=== PATIENT | female | born 1975 | race American Indian/Alaskan Native ===

== ENCOUNTER 2016-08-04 17:15 | Emergency (ER) | payer SELFPAY ==
[2016-08-04] MEDS ORDERED: TORADOL IM ONE (21:14)
--- NOTE | 2016-08-04 21:26 | Emergency Department Report ---
HPI - General Chief Complaint: Skin Rash Time Seen by Provider: 08/04/16 21:12 - HPI HPI: This is a 40-year-old -[place] female who presents to the emergency department with complaint of a 2 day history of some painful and itchy lesions to the left arm, left side of the neck, left ankle and to the left wrist that she says are spider bites. She says that she witnessed 8 small spiders come out and bite her while she has been staying [facility]. They are small, red, circular, raised. There is been no bleeding, weeping or drainage. She has not taken anything for symptoms prior to presentation. She has a history of bipolar disorder. She denies any suicidal homicidal ideations or any auditory hallucinations. Patient is not allowed to have any narcotics per the [facility]. Patient says that the spiders were black and muhammad, small and that she found a large spider web in the room as well. ED Past Medical Hx - Past Medical History Previous Medical History?: Yes Hx Psychiatric Treatment: Yes (BiPolar,) - Surgical History Past Surgical History?: No - Social History Smoking Status: Light Tobacco Smoker Substance Use Type: Alcohol - Medications Home Medications: Home Medications Medication Instructions Recorded Confirmed Last Taken Type Ibuprofen [Motrin] 600 mg PO Q8H PRN #20 tablet 08/04/16 Unknown Rx ED Review of Systems ROS: Stated complaint: SPIDER BITE/NUMBNESS R ARM Other details as noted in HPI Comment: All other systems reviewed and negative Constitutional: denies: chills, fever Eyes: denies: eye pain, eye discharge, vision change ENT: denies: ear pain, throat pain Respiratory: denies: cough, shortness of breath, wheezing Cardiovascular: denies: chest pain, palpitations Gastrointestinal: denies: abdominal pain, nausea, diarrhea Genitourinary: denies: urgency, dysuria, discharge Musculoskeletal: denies: back pain, joint swelling, arthralgia Skin: rash, lesions Neurological: denies: headache, weakness, paresthesias Physical Exam - Physical Exam Vital Signs: Vital Signs 08/04/16 18:13 Temperature 98.5 F Pulse Rate 105 H Respiratory 16 Rate Blood Pressure 116/77 O2 Sat by Pulse 98 Oximetry Physical Exam: GENERAL: The patient is well-developed well-nourished. HEENT: Normocephalic. Atraumatic. Extraocular motions are intact. Patient has moist mucous membranes. NECK: Supple. Trachea is midline. CHEST/LUNGS: Clear to auscultation. There is no respiratory distress noted. HEART/CARDIOVASCULAR: Regular. There is no tachycardia. There is no gallop rub or murmur. ABDOMEN: Abdomen is soft, nontender. Patient has normal bowel sounds. SKIN: The patient has a few individual papules seen to the left side of the neck and/or superior shoulder, left wrist at the thenar eminence and the left lateral malleolus. These papules are circular, about 1 cm in diameter, raised but there is no erythema. There is no warmth or fluctuance and they're slightly indurated. None of them appear to be in any flexor surfaces. NEURO: The patient is awake, alert, and oriented. The patient is cooperative. The patient has no focal neurologic deficits. The patient has normal speech. MUSCULOSKELETAL: There is no tenderness or deformity. There is no limitation range of motion. There is no evidence of acute injury. ED Course Vital Signs 08/04/16 18:13 Temperature 98.5 F Pulse Rate 105 H Respiratory 16 Rate Blood Pressure 116/77 O2 Sat by Pulse 98 Oximetry ED Medical Decision Making - Medical Decision Making 40-year-old female presents to the emergency department with a 2 day history of spider bites that of caused a few localized papules. This rash does not appear to be anything that appears to be dangerous. Negative Mikulski sign. There is no current bleeding, weeping or drainage. None of them are abscesses that require any incision and drainage. Patient was given a dose of Decadron here and a shot of Toradol for discomfort. None of the lesions are in the flexor surfaces, including none in the webbing of the fingers or waistband and does not appear to be consistent with scabies. Patient was given the steroids for inflammation and itching. She'll be discharged with some anti-inflammatory is. She has a primary care doctor and Dr. Stroud will need to follow-up in the next few days and maybe be referred to a slide fastener chain assembler if not improving. She has been encouraged to return to the ER with any worsening or symptoms or any acute distress especially if she develops more lesions in the become more generalized. - Differential Diagnosis insect bite, bedbugs, scabies Critical Care Time: No Critical care attestation.: If time is entered above; I have spent that time in minutes in the direct care of this critically ill patient, excluding procedure time. ED Disposition Clinical Impression: Papular rash Disposition: DISCHARGED TO HOME OR SELFCARE Is pt being admited?: No Does the pt Need Aspirin: No Condition: Good Instructions: Acute Rash (ED) Additional Instructions: Please follow-up with your primary care doctor in the next few days. You may need the slide fastener chain assembler if this does not improve. You were given some steroids in the emergency department that should help with inflammation and itching. I also prescribed used some anti-inflammatory's. Return to the emergency department with any worsening of her symptoms, generalization of the rash, development of a fever, or any acute distress. Prescriptions: Ibuprofen [Motrin] 600 mg PO Q8H PRN #20 tablet PRN Reason: Pain Referrals: PRIMARY CARE, [Primary Care Provider] - 3-5 Days Time of Disposition: 21:28
[2016-08-04] MEDS ORDERED: DECADRON PO ONE (22:00)
[2016-08-04 22:16] VITALS: BP 114/74
== END 2016-08-04 21:28 | disposition home or self-care (01) ==
LOC: ED 17:15
DX: R21 Rash and other nonspecific skin eruption (principal); F31.9 Bipolar disorder, unspecified; F17.200 Nicotine dependence, unspecified, uncomplicated
CPT/HCPCS: 96372; 99282; J1885; J8540

== ENCOUNTER 2017-04-29 08:43 | Emergency (ER) | payer MEDICARE ==
[2017-04-29 09:38] LABS: Basophils % (Auto) 0.6 % (0.0-1.8); Eosinophils % (Auto) 0.2 % (0.0-4.3); Mean Corpuscular HGB Conc 33 % (30-34); Mean Corpuscular Hemoglobin 28 pg (28-32); Mean Corpuscular Volume 86 fl (79-97); Platelet Count 207 K/mm3 (140-440); Red Blood Count 5.72 M/mm3 (3.65-5.03); Red Cell Distribution Width 15.4 % (13.2-15.2); White Blood Count 6.4 K/mm3 (4.5-11.0)
[2017-04-29 09:51] LABS: Anion Gap 20 mmol/L; BUN/Creatinine Ratio 10; Blood Urea Nitrogen 8 mg/dL (7-17); Calcium 9.5 mg/dL (8.4-10.2); Carbon Dioxide 21 mmol/L (22-30); Glucose 79 mg/dL (65-100); Potassium 3.6 mmol/L (3.6-5.0); Sodium 141 mmol/L (137-145)
--- NOTE | 2017-04-29 13:49 | Emergency Department Report ---
ED Psych HPI - General Chief Complaint: Psych Stated Complaint: SUICIDAL Time Seen by Provider: 04/29/17 13:48 Source: patient Mode of arrival: Ambulatory Limitations: No Limitations - History of Present Illness Initial Comments: This is a 41-year-old female, the patient is previously unknown to me. She reports a past medical history of psychiatric disease, presents to the ER complaining of suicidality, depression. Her symptoms are constant. She wants to cut herself. She endorses hallucinations, as she denies intentional overdose , and she denies access to guns and firearms. MD Complaint: suicidal ideation, feels depressed -: Gradual Associated Psychiatric Symptoms: suicidal ideation, auditory hallucinations, visual hallucinations History of same: Yes Quality: constant Improves With: none Worsens With: none Context: significant life stressor Associated Symptoms: denies other symptoms Treatments Prior to Arrival: none If Self Harm: admits thoughts of, has plan - Related Data Previous Rx's Medication Instructions Recorded Last Taken Type Ibuprofen [Motrin] 600 mg PO Q8H PRN #20 tablet 08/04/16 Unknown Rx Allergies Allergy/AdvReac Type Severity Reaction Status Date / Time No Known Allergies Allergy Unverified 04/29/17 08:52 ED Review of Systems ROS: Stated complaint: SUICIDAL Other details as noted in HPI Constitutional: denies: fever Eyes: denies: eye discharge ENT: denies: epistaxis Respiratory: denies: cough Cardiovascular: denies: chest pain Gastrointestinal: denies: abdominal pain Genitourinary: denies: dysuria Musculoskeletal: denies: back pain Neurological: weakness Psychiatric: anxiety, depression, auditory hallucinations, visual hallucinations , suicidal thoughts ED Past Medical Hx - Past Medical History Previous Medical History?: Yes Hx Psychiatric Treatment: Yes (BiPolar, schizophrenia, depression) - Surgical History Past Surgical History?: No - Social History Smoking Status: Current Every Day Smoker Substance Use Type: Alcohol - Medications Home Medications: Home Medications Medication Instructions Recorded Confirmed Last Taken Type Ibuprofen [Motrin] 600 mg PO Q8H PRN #20 tablet 08/04/16 Unknown Rx ED Physical Exam - General Limitations: No Limitations General appearance: alert, in no apparent distress - Head Head exam: Present: atraumatic, normocephalic - Eye Eye exam: Present: normal appearance, PERRL, EOMI. Absent: nystagmus - ENT ENT exam: Present: normal exam, normal orophraynx, mucous membranes moist, normal external ear exam - Neck Neck exam: Present: normal inspection, full ROM. Absent: tenderness, meningismus - Respiratory Respiratory exam: Present: normal lung sounds bilaterally. Absent: respiratory distress, wheezes, rales, rhonchi, stridor, chest wall tenderness, accessory muscle use, decreased breath sounds, prolonged expiratory - Cardiovascular Cardiovascular Exam: Present: regular rate, normal rhythm, normal heart sounds. Absent: bradycardia, tachycardia, irregular rhythm, systolic murmur, diastolic murmur, rubs, gallop - GI/Abdominal GI/Abdominal exam: Present: soft, normal bowel sounds. Absent: distended, tenderness, guarding, rebound, rigid, pulsatile mass - Extremities Exam Extremities exam: Present: normal inspection, full ROM, normal capillary refill. Absent: pedal edema, joint swelling, calf tenderness - Back Exam Back exam: Present: normal inspection, full ROM. Absent: tenderness, CVA tenderness (R), paraspinal tenderness, vertebral tenderness - Neurological Exam Neurological exam: Present: alert, oriented X3, normal gait, other (Extraocular movements intact. Tongue midline. No facial droop. Facial sensation intact to light touch in the V1, V2, V3 distribution bilaterally. 5 and 5 strength in 4 extremities.. Sensation is intact to light touch in 4 extremities.). Absent : motor sensory deficit - Psychiatric Psychiatric exam: Present: depressed, anxious. Absent: homicidal ideation, suicidal ideation - Skin Skin exam: Present: warm, dry, intact, normal color. Absent: rash ED Course Vital Signs 04/29/17 08:46 Temperature 97.6 F Pulse Rate 78 Respiratory 16 Rate Blood Pressure 134/83 O2 Sat by Pulse 98 Oximetry ED Medical Decision Making - Lab Data Result diagrams: 04/29/17 08:58 04/29/17 08:58 Vital Signs 04/29/17 08:46 Temperature 97.6 F Pulse Rate 78 Respiratory 16 Rate Blood Pressure 134/83 O2 Sat by Pulse 98 Oximetry Lab Results 04/29/17 04/29/17 04/29/17 Range/Units 08:58 08:58 08:58 WBC 6.4 (4.5-11.0) K/mm3 RBC 5.72 H (3.65-5.03) M/mm3 Hgb 16.0 H (10.1-14.3) gm/dl Hct 49.0 H (30.3-42.9) % MCV 86 (79-97) fl MCH 28 (28-32) pg MCHC 33 (30-34) % RDW 15.4 H (13.2-15.2) % Plt Count 207 (140-440) K/mm3 Lymph % (Auto) 29.7 (13.4-35.0) % Tillman % (Auto) 12.4 H (0.0-7.3) % Eos % (Auto) 0.2 (0.0-4.3) % Baso % (Auto) 0.6 (0.0-1.8) % Lymph # 1.9 (1.2-5.4) K/mm3 Tillman # 0.8 (0.0-0.8) K/mm3 Eos # 0.0 (0.0-0.4) K/mm3 Baso # 0.0 (0.0-0.1) K/mm3 Seg Neutrophils % 57.1 (40.0-70.0) % Seg Neutrophils # 3.6 (1.8-7.7) K/mm3 Sodium 141 (137-145) mmol/L Potassium 3.6 (3.6-5.0) mmol/L Chloride 104.0 (98-107) mmol/L Carbon Dioxide 21 L (22-30) mmol/L Anion Gap 20 mmol/L BUN 8 (7-17) mg/dL Creatinine 0.8 (0.7-1.2) mg/dL Estimated GFR > 60 ml/min BUN/Creatinine Ratio 10 % Glucose 79 (65-100) mg/dL Calcium 9.5 (8.4-10.2) mg/dL Total Creatine Kinase (30-135) units/L HCG, Quant (0-4) mIU/mL Urine Color (Yellow) Urine Turbidity (Clear) Urine pH (5.0-7.0) Ur Specific [place] (1.003-1.030) Urine Protein (Negative) mg/dL Urine Glucose (UA) (Negative) mg/dL Urine Ketones (Negative) mg/dL Urine Blood (Negative) Urine Nitrite (Negative) Urine Bilirubin (Negative) Urine Urobilinogen (<2.0) mg/dL Ur Leukocyte Esterase (Negative) Urine WBC (Auto) (0.0-6.0) /HPF Urine RBC (Auto) (0.0-6.0) /HPF U Epithel Cells (Auto) (0-13.0) /HPF Urine Bacteria (Auto) (Negative) /HPF Urine Mucus /HPF Salicylates (2.8-20.0) mg/dL Urine Opiates Screen Urine Methadone Screen Acetaminophen (10.0-30.0) ug/mL Ur Barbiturates Screen Valproic Acid (50-100) ug/mL Ur Phencyclidine Scrn Ur Amphetamines Screen U Benzodiazepines Scrn [place] (0.0-1.2) mmol/L Urine Cocaine Screen U Marijuana (THC) Screen Drugs of Abuse Note Plasma/Serum Alcohol < 0.01 (0-0.07) gm% 04/29/17 04/29/17 04/29/17 Range/Units 13:50 13:50 14:00 WBC (4.5-11.0) K/mm3 RBC (3.65-5.03) M/mm3 Hgb (10.1-14.3) gm/dl Hct (30.3-42.9) % MCV (79-97) fl MCH (28-32) pg MCHC (30-34) % RDW (13.2-15.2) % Plt Count (140-440) K/mm3 Lymph % (Auto) (13.4-35.0) % Tillman % (Auto) (0.0-7.3) % Eos % (Auto) (0.0-4.3) % Baso % (Auto) (0.0-1.8) % Lymph # (1.2-5.4) K/mm3 Tillman # (0.0-0.8) K/mm3 Eos # (0.0-0.4) K/mm3 Baso # (0.0-0.1) K/mm3 Seg Neutrophils % (40.0-70.0) % Seg Neutrophils # (1.8-7.7) K/mm3 Sodium (137-145) mmol/L Potassium (3.6-5.0) mmol/L Chloride (98-107) mmol/L Carbon Dioxide (22-30) mmol/L Anion Gap mmol/L BUN (7-17) mg/dL Creatinine (0.7-1.2) mg/dL Estimated GFR ml/min BUN/Creatinine Ratio % Glucose (65-100) mg/dL Calcium (8.4-10.2) mg/dL Total Creatine Kinase 317 H (30-135) units/L HCG, Quant (0-4) mIU/mL Urine Color Sonia (Yellow) Urine Turbidity Clear (Clear) Urine pH 5.0 (5.0-7.0) Ur Specific [place] 1.023 (1.003-1.030) Urine Protein 30 mg/dl (Negative) mg/dL Urine Glucose (UA) Neg (Negative) mg/dL Urine Ketones 20 (Negative) mg/dL Urine Blood Sm (Negative) Urine Nitrite Neg (Negative) Urine Bilirubin Neg (Negative) Urine Urobilinogen 4.0 (<2.0) mg/dL Ur Leukocyte Esterase Neg (Negative) Urine WBC (Auto) 2.0 (0.0-6.0) /HPF Urine RBC (Auto) 6.0 (0.0-6.0) /HPF U Epithel Cells (Auto) 2.0 (0-13.0) /HPF Urine Bacteria (Auto) 1+ (Negative) /HPF Urine Mucus 3+ /HPF Salicylates (2.8-20.0) mg/dL Urine Opiates Screen Presumptive negative Urine Methadone Screen Presumptive negative Acetaminophen (10.0-30.0) ug/mL Ur Barbiturates Screen Presumptive negative Valproic Acid (50-100) ug/mL Ur Phencyclidine Scrn Presumptive negative Ur Amphetamines Screen Presumptive negative U Benzodiazepines Scrn Presumptive negative [place] (0.0-1.2) mmol/L Urine Cocaine Screen Presumptive positive U Marijuana (THC) Screen Presumptive negative Drugs of Abuse Note Disclamer Plasma/Serum Alcohol (0-0.07) gm% 04/29/17 04/29/17 04/29/17 Range/Units 14:00 14:00 14:00 WBC (4.5-11.0) K/mm3 RBC (3.65-5.03) M/mm3 Hgb (10.1-14.3) gm/dl Hct (30.3-42.9) % MCV (79-97) fl MCH (28-32) pg MCHC (30-34) % RDW (13.2-15.2) % Plt Count (140-440) K/mm3 Lymph % (Auto) (13.4-35.0) % Tillman % (Auto) (0.0-7.3) % Eos % (Auto) (0.0-4.3) % Baso % (Auto) (0.0-1.8) % Lymph # (1.2-5.4) K/mm3 Tillman # (0.0-0.8) K/mm3 Eos # (0.0-0.4) K/mm3 Baso # (0.0-0.1) K/mm3 Seg Neutrophils % (40.0-70.0) % Seg Neutrophils # (1.8-7.7) K/mm3 Sodium (137-145) mmol/L Potassium (3.6-5.0) mmol/L Chloride (98-107) mmol/L Carbon Dioxide (22-30) mmol/L Anion Gap mmol/L BUN (7-17) mg/dL Creatinine (0.7-1.2) mg/dL Estimated GFR ml/min BUN/Creatinine Ratio % Glucose (65-100) mg/dL Calcium (8.4-10.2) mg/dL Total Creatine Kinase (30-135) units/L HCG, Quant < 2 (0-4) mIU/mL Urine Color (Yellow) Urine Turbidity (Clear) Urine pH (5.0-7.0) Ur Specific [place] (1.003-1.030) Urine Protein (Negative) mg/dL Urine Glucose (UA) (Negative) mg/dL Urine Ketones (Negative) mg/dL Urine Blood (Negative) Urine Nitrite (Negative) Urine Bilirubin (Negative) Urine Urobilinogen (<2.0) mg/dL Ur Leukocyte Esterase (Negative) Urine WBC (Auto) (0.0-6.0) /HPF Urine RBC (Auto) (0.0-6.0) /HPF U Epithel Cells (Auto) (0-13.0) /HPF Urine Bacteria (Auto) (Negative) /HPF Urine Mucus /HPF Salicylates < 0.3 L (2.8-20.0) mg/dL Urine Opiates Screen Urine Methadone Screen Acetaminophen < 15.0 (10.0-30.0) ug/mL Ur Barbiturates Screen Valproic Acid < 2.8 L (50-100) ug/mL Ur Phencyclidine Scrn Ur Amphetamines Screen U Benzodiazepines Scrn [place] 0.1 (0.0-1.2) mmol/L Urine Cocaine Screen U Marijuana (THC) Screen Drugs of Abuse Note Plasma/Serum Alcohol (0-0.07) gm% - Medical Decision Making Differential diagnosis: Mood disorder, suicidality, medical clearance for psychiatric placement Assessment and plan: 41-year-old female with suicidality, alert and oriented 3 , GCS of 15, clinic is sober, NIH score of 0, unremarkable physical exam. Requires 1013. There is no immediate medical consultation indication to psychiatric commission, evaluation and consultation at this time. The crisis team has been ordered. Patient reports not being on psychiatric medications for the past 4 months, therefore we cannot perform medication reconciliation at this time. Critical care attestation.: If time is entered above; I have spent that time in minutes in the direct care of this critically ill patient, excluding procedure time. ED Disposition Clinical Impression: Mood disorder Disposition: DC/TX-65 PSY HOSP/PSY UNIT Is pt being admited?: No Does the pt Need Aspirin: No Condition: Stable Referrals: PRIMARY CARE, [Primary Care Provider] - 3-5 Days
[2017-04-29 14:23] LABS: Urine Drugs of Abuse Note Disclamer
[2017-04-29 14:56] LABS: Bacteria,Urine 1+ /HPF (Negative); Bilirubin,Urine NEG (Negative); Blood,Urine SM (Negative); Ketones,Urine 20 mg/dL (Negative); Leukocyte Esterase,Urine NEG (Negative); Mucus,Urine 3+ /HPF; Nitrite,Urine NEG (Negative)
[2017-04-29 14:59] LABS: Lithium 0.1 mmol/L (0.0-1.2)
[2017-04-29 15:09] LABS: Salicylate < 0.3 mg/dL (2.8-20.0); Valproate < 2.8 ug/mL (50-100)
[2017-04-29] MEDS ORDERED: ATIVAN IM PRN (15:14)
[2017-04-29] MEDS ORDERED: ZOFRAN ODT PO PRN (15:14)
[2017-04-29] MEDS ORDERED: HALDOL IM PRN (15:14)
[2017-04-29] MEDS ORDERED: TYLENOL PO PRN (15:14)
[2017-04-30 13:17] VITALS: BP 121/72
--- NOTE | 2017-04-30 14:18 | Consultation ---
History of Present Illness - Reason for Consult Consult date: 04/30/17 Reason for consult: Mental Health Evaluation Requesting physician: TEZ CHIN - Chief Complaint Chief complaint: "I had a moment" - History of Present Psychiatric Illness 41 y.o. AA female presenting to [facility] for SI's and AH's. Today patient is calm and cooperative during the assessment. She stated that she became "suicidal" when she was denied a 5000 loan 2 days ago. She stated that she wanted the money to buy new furniture and pay some bills. She stated that she is pending a lawsuit and wanted to borrow against her upcoming settlement. Once she find out that she was denied the loan she stated that she got "high" on cocaine and wanted to end her life. She stated that she have attempted suicide in the past ( 1996) by cutting her wrist. She stated after several attempts to calm herself down, she decided to drive to [facility] for help. She stated that she still have thoughts of suicide now without a plan. She denies HI's and AVH's. She stated that she have not taken her medications (Zyprexa and Trazodone) in 4 months. She admit to sleep disturbance, but denies a poor appetite. She stated that she use cocaine often and consume alcohol occasionally. Medications and Allergies Allergies Allergy/AdvReac Type Severity Reaction Status Date / Time No Known Allergies Allergy Unverified 04/29/17 08:52 Home Medications Medication Instructions Recorded Confirmed Last Taken Type Ibuprofen [Motrin] 600 mg PO Q8H PRN #20 tablet 08/04/16 Unknown Rx Active Meds: Active Medications Acetaminophen (Tylenol) 650 mg PO Q6HR PRN PRN Reason: Pain Haloperidol Lactate (Haldol) 5 mg IM Q6HR PRN PRN Reason: Agitation Lorazepam (Ativan) 2 mg IM Q4HR PRN PRN Reason: Agitation Ondansetron HCl (Zofran Odt) 4 mg PO Q6HR PRN PRN Reason: Nausea Past psychiatric history - Past Medical History Past Medical History: No medical history Past Surgical History: No surgical history - past Psychiatric treatment and history Psych: Bipolar psychiatric treatment history: Inpatient at [facility] in the past. Family psy hx of Bipolar DO. - Social History Social history: lives with family Mental Status Exam - Vital signs Last Vital Signs Temp 97.8 F 04/30/17 10:00 Pulse 61 04/30/17 10:00 Resp 18 04/30/17 10:00 BP 121/72 04/30/17 10:00 Pulse Ox 99 04/30/17 10:00 - Exam Narrative exam: MSE: Appearance: calm, cooperative Behavior: regular eye contact Speech: regular rate and tone Mood: "fine" Affect: labile Thought Process: circumstantial Thought Content: denies HI's and AVH's, suicidal thoughts Motor Activity: ambulatory Cognition: A/O x 3 Insight: variable Judgment: variable Results Result Diagrams: 04/29/17 08:58 04/29/17 08:58 Abnormal lab results 04/29/17 04/29/17 Range/Units 14:00 14:00 Total Creatine Kinase 317 H (30-135) units/L Salicylates < 0.3 L (2.8-20.0) mg/dL Valproic Acid < 2.8 L (50-100) ug/mL All other labs normal. Assessment and Plan Assessment and plan: Impression: Historical Dx: Bipolar/Depression. Unspecified Mood DO. Substance Use DO (cocaine). Today patient is calm and cooperative during the assessment. Patient having suicidal thoughts. DDx: MDD, Substance Induced Mood DO Recommendation/Plan: Continue 1013 with placement to [facility] today.
== END 2017-04-30 17:29 ==
LOC: ED 08:43
DX: F39 Unspecified mood [affective] disorder (principal); F17.200 Nicotine dependence, unspecified, uncomplicated
CPT/HCPCS: 36415; 80048; 80164; 80178; 80307; 81001; 82550; 84702; 85025; 99285; G0480; 80320

== ENCOUNTER 2017-06-26 11:45 | Emergency (ER) | payer MEDICARE ==
[2017-06-26 13:45] LABS: Basophils % (Auto) 0.9 % (0.0-1.8); Eosinophils % (Auto) 0.6 % (0.0-4.3); Hematocrit 41.8 % (30.3-42.9); Hemoglobin 13.6 gm/dl (10.1-14.3); Mean Corpuscular HGB Conc 32 % (30-34); Mean Corpuscular Hemoglobin 28 pg (28-32); Mean Corpuscular Volume 85 fl (79-97); Platelet Count 195 K/mm3 (140-440); Red Blood Count 4.94 M/mm3 (3.65-5.03); Red Cell Distribution Width 14.2 % (13.2-15.2); White Blood Count 8.5 K/mm3 (4.5-11.0)
[2017-06-26 14:07] LABS: Alanine Aminotransferase 16 units/L (7-56); Albumin 4.1 g/dL (3.9-5); Albumin/Globulin Ratio 1.3 %; Alkaline Phosphatase 90 units/L (35-129); Anion Gap 20 mmol/L; BUN/Creatinine Ratio 13; Blood Urea Nitrogen 10 mg/dL (7-17); Calcium 9.1 mg/dL (8.4-10.2); Carbon Dioxide 21 mmol/L (22-30); Chloride 101.9 mmol/L (98-107); Glucose 73 mg/dL (65-100); Potassium 3.7 mmol/L (3.6-5.0); Sodium 139 mmol/L (137-145); Total Protein 7.2 g/dL (6.3-8.2)
[2017-06-26] MEDS ORDERED: TYLENOL PO PRN (15:20)
[2017-06-26] MEDS ORDERED: MILK OF MAGNESIA PO PRN (15:20)
[2017-06-26] MEDS ORDERED: ALUM-MAG HYDROX-SIMETH 200-200-20MG/5ML PO PRN (15:20)
--- NOTE | 2017-06-26 15:24 | Emergency Department Report ---
HPI - General Chief Complaint: Psych Time Seen by Provider: 06/26/17 12:15 - HPI HPI: The patient is a 41-year-old female presents for evaluation of mental health. The patient reports constant and severe sadness and depression since last night , and associated with suicidal ideations. The patient reports a plan to cut her throat with a knife. The patient denies fever, headache, unexplained weight loss or weight gain, heat or cold intolerance, skin, hair, or nail changes, neuro deficits, homicidal ideations, or auditory or visual hallucinations. ED Past Medical Hx - Past Medical History Hx Psychiatric Treatment: Yes (BiPolar, schizophrenia, depression) - Social History Smoking Status: Current Every Day Smoker Substance Use Type: None, Alcohol - Medications Home Medications: Home Medications Medication Instructions Recorded Confirmed Last Taken Type Ibuprofen [Motrin] 600 mg PO Q8H PRN #20 tablet 08/04/16 Unknown Rx Cyclobenzaprine [Flexeril] 10 mg PO BID PRN #10 tablet 05/25/17 Unknown Rx Ibuprofen [Motrin 600 MG tab] 600 mg PO Q8H PRN #30 tablet 05/25/17 Unknown Rx ED Review of Systems ROS: Stated complaint: SUICIDAL Other details as noted in HPI Constitutional: denies: fever ENT: denies: throat or neck pain Respiratory: denies: cough, shortness of breath Cardiovascular: denies: chest pain Endocrine: denies unexplained weight loss or gain Gastrointestinal: denies: abdominal pain, nausea Genitourinary: denies: dysuria Musculoskeletal: denies: leg swelling Skin: denies: rash Neurological: denies: headache Hematological/Lymphatic: denies: easy bleeding or easy bruising Psych: denies sadness or hopelessness Physical Exam - Physical Exam Vital Signs: Vital Signs 06/26/17 12:02 Temperature 98.5 F Pulse Rate 81 Blood Pressure 113/76 O2 Sat by Pulse 94 Oximetry Physical Exam: General: well-nourished, well-developed, no acute distress Head: Normocephalic, atraumatic Eyes: normal sclera ENT: Mucous membranes are pink and moist Neck: trachea midline, neck supple, No neck stiffness, no cervical adenopathy Respiratory: Breath sounds equal bilaterally, no wheezing, rales, or rhonchi Cardio: S1 and S2 present, no murmurs, rubs, gallops, capillary refill is brisk Abdomen: Normoactive bowel sounds, soft abdomen, no tenderness Musc: No pitting edema Skin: No rash Neuro: no facial drooping, normal speech Psych: Flat affect, depressed mood, poor insight, positive suicidal ideation ED Course Vital Signs 06/26/17 12:02 Temperature 98.5 F Pulse Rate 81 Blood Pressure 113/76 O2 Sat by Pulse 94 Oximetry ED Medical Decision Making - Lab Data Result diagrams: 06/26/17 13:19 06/26/17 13:19 - Medical Decision Making The patient was seen and examined by myself. The patient is placed on a geographic information system analyst and continuous pulse ox. On initial evaluation, the patient was found to be in no distress. Labs are obtained. Lab results are grossly unremarkable. The patient is medically clear. Mental health is consulted. Mental health evaluates the patient and agrees that the patient is at risk of harm to self. A 1013 is completed. The patient will be admitted to a psychiatric facility once bed placement is obtained. Critical care attestation.: If time is entered above; I have spent that time in minutes in the direct care of this critically ill patient, excluding procedure time. ED Disposition Clinical Impression: Suicidal ideation Depression Qualifiers: Depression Type: major depressive disorder Major depression recurrence: single episode Active/Remission status: currently active Major depression episode severity: severe Psychotic features: without psychotic features Qualified Code(s ): F32.2 - Major depressive disorder, single episode, severe without psychotic features Disposition: DC/TX-65 PSY HOSP/PSY UNIT Is pt being admited?: No Does the pt Need Aspirin: No Condition: Serious Referrals: PRIMARY CARE [Primary Care Provider] - 3-5 Days Time of Disposition: 13:24
[2017-06-26 17:53] LABS: Urine Drugs of Abuse Note Disclamer
[2017-06-26 18:11] LABS: Bilirubin,Urine NEG (Negative); Blood,Urine SM (Negative); Ketones,Urine TR mg/dL (Negative); Leukocyte Esterase,Urine NEG (Negative); Mucus,Urine 3+ /HPF; Nitrite,Urine NEG (Negative)
--- NOTE | 2017-06-27 16:30 | Consultation ---
History of Present Illness - Reason for Consult Consult date: 06/27/17 Reason for consult: psychiatric evaluation - Chief Complaint Chief complaint: "I miss my mom and daughter; they are in heaven." - History of Present Psychiatric Illness Winnie Singh is a 41-year-old female who presented for evaluation of mental health. The patient reports constant and severe sadness and depression since last night, and associated with suicidal ideation. The patient reports a plan to cut her throat with a knife. She reports thinking about her mother and daughter who are . She said she wanted to be with them. She says her mood goes from elevated for weeks to severe depressive episodes. During the elevated moods she spends money excessively. During depressed episodes she uses cocaine if she can obtain it. She says this occurs about every 1-2 months. She drinks 2 beers daily. She is treated for schizoaffective d/o, bipolar type at the [facility]. She takes seroquel 300mg bid, zyprexa low dose, zoloft 100mg daily, vistaril 100mg hs, and trazodone 100mg hs. She was hospitalized 2 months ago at [facility]. While there the zoloft and zyprexa were discontinued and lithium was added. She says she liked the lithium but did not continue it on discharge. She resumed the zoloft. She advised by her outpatient psychiatrist to discontinue vistaril but she takes it prn sleep. She says seroquel keeps the voices under control. Primary concerns are depression and suicidal ideation. No homicidal ideation. Medications and Allergies Allergies Allergy/AdvReac Type Severity Reaction Status Date / Time No Known Allergies Allergy Verified 05/25/17 12:16 Home Medications Medication Instructions Recorded Confirmed Last Taken Type Ibuprofen [Motrin] 600 mg PO Q8H PRN #20 tablet 08/04/16 06/26/17 Unknown Rx Cyclobenzaprine [Flexeril] 10 mg PO BID PRN #10 tablet 05/25/17 06/26/17 Unknown Rx Ibuprofen [Motrin 600 MG tab] 600 mg PO Q8H PRN #30 tablet 05/25/17 06/26/17 Unknown Rx Active Meds: Active Medications Acetaminophen (Tylenol) 650 mg PO Q4HR PRN PRN Reason: Pain MILD(1-3)/Fever >100.5/BILLINGS Al Hydrox/Mg Hydrox/Simethicone (Alum-Mag Hydrox-Simeth [id number]/5ml) 30 ml PO Q4HR PRN PRN Reason: Indigestion Magnesium Hydroxide (Milk Of Magnesia) 30 ml PO Q12HR PRN PRN Reason: Constipation Past psychiatric history - past Psychiatric treatment and history psychiatric treatment history: she reports a history of suicide attempt and when asked for details, she said only ideation - Social History Social history: alcohol abuse, other (uses cocaine once every 1-2 months, when depressed) Mental Status Exam - Vital signs Last Vital Signs Temp 98 F 06/27/17 11:06 Pulse 68 06/27/17 11:06 Resp 18 06/27/17 11:07 BP 99/51 06/27/17 11:06 Pulse Ox 100 06/27/17 11:07 - Exam Orientation: time, place, person Affect: depressed Mood: congruent with affect, sad Thought content: other (suicidal ideation with a plan, see HPI) Thought Process: Intact Perceptions: none Speech: normal rate and pattern Concentration: focused Motor activity: normal Level of consciousness: alert Memory: Intact Sleep Symptoms: Difficulty Falling Asleep Interaction: cooperative Results Result Diagrams: 06/26/17 13:19 06/26/17 13:19 All other labs normal. Assessment and Plan Assessment and plan: Impression: suicidal ideation with a plan schizoaffective disorder, bipolar type by history cocaine use d/o alcohol use disorder ddx: substance induced mood d/o Recommendation: 1013 and transfer to inpatient psychiatric facility Start: Seroquel 300mg bid for mood/maintenance of psychotic symptoms do not resume zyprexa. It was explained the recommendation to optimize one antipsychotic to minimize risk of adverse effects, such as EPS, metabolic effects. Decrease zoloft to 50mg daily with a plan to discontinue as it may be destabilizing her mood Start lithium 300mg bid for mood. She was inofrmed of the risks and benefits and that the medication has a narrow therapeutic window. She is agreeable to restart it. Continue trazodone 100mg hs for sleep. Vistaril will not be restarted.
[2017-06-27] MEDS ORDERED: DESYREL PO SCH (22:00)
[2017-06-27] MEDS: ESKALITH PO SCH (22:40)
[2017-06-28] MEDS ORDERED: ZOLOFT PO SCH (10:00)
[2017-06-28] MEDS: ESKALITH PO SCH (11:14)
--- NOTE | 2017-06-28 11:30 | Progress Note ---
Subjective - Reason for Consult Consult date: 06/28/17 Reason for consult: Psychitary Follow-up - Chief Complaint Chief complaint: "I miss my mother and daughter" 1-year-old female who presented for evaluation of mental health. Today patient is calm and cooperative during the assessment. She stated that this time of year she really get "depressed", because her mother and daughter "" during the holiday season. She stated that she want to stop using cocaine and stay compliant on her medications. She denies SI/HI's. She stated that the voices are decreasing. She denies side effects of her medications. Mental Status Exam - Vital signs Last Vital Signs Temp 97.8 F 06/27/17 20:26 Pulse 81 06/27/17 20:26 Resp 16 06/28/17 04:10 BP 127/85 06/27/17 20:26 Pulse Ox 98 06/28/17 04:10 - Exam Narrative exam: MSE: Appearance: calm, cooperative Behavior: regular eye contact Speech: regular rate and tone Mood: "okay" Affect: congruent to mood Thought Process: circumstantial Thought Content: denies SI/HI's and AVH's Motor Activity: ambulatory Cognition: A/O x3 Insight: variable Judgment: variable Assessment and Plan Impression: Schizoaffective DO. Seasonal Affective DO. Substance use DO (cocaine ). Alcohol Use DO. Today patient is calm and cooperative during the assessment. DDx: Substance Induced Mood DO Recommendation/Plan: Continue 1013 with placement to inpatient psy services. Continue Seroquel 300 mg PO BID for mood/maintenance of psychotic symptoms, Zoloft 50 mg PO daily with plans to D/C, [place] 300 mg PO BID for mood, and Trazodone 100 mg PO HS for sleep consolidation. Risk/benefits was discussed with patient reference all her medications. Discussed generalized coping skills with patient.
[2017-06-28 18:11] VITALS: BP 99/53
== END 2017-06-28 18:25 ==
LOC: ED 11:45 → EEVIPCON 11:45 → ED 06-28 18:25
DX: R45.851 Suicidal ideations (principal); F32.2 Major depressive disorder, single episode, severe without psychotic features; F17.200 Nicotine dependence, unspecified, uncomplicated; F20.9 Schizophrenia, unspecified
CPT/HCPCS: 36415; 80053; 80178; 80307; 81001; 81025; 85025; 99285; G0480; 80320

== ENCOUNTER 2019-04-11 18:55 | Emergency (ER) | payer MEDICAID, MEDICARE ==
[2019-04-11 20:07] VITALS: BP 159/97
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
[2019-04-11] MEDS ORDERED: DELTASONE PO ONE (22:55)
[2019-04-11] MEDS ORDERED: TORADOL IM ONE (22:55)
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
== END 2019-04-11 23:44 | disposition home or self-care (01) ==
LOC: ED 18:55
DX: M54.2 Cervicalgia (principal); M54.5 Low back pain; F31.9 Bipolar disorder, unspecified; F20.9 Schizophrenia, unspecified; F17.200 Nicotine dependence, unspecified, uncomplicated; V89.2XXA Person injured in unspecified motor-vehicle accident, traffic, initial encounter; Y93.89 Activity, other specified; Y92.410 Unspecified street and highway as the place of occurrence of the external cause; Y99.8 Other external cause status
CPT/HCPCS: 71046; 72100; 73562; 96372; 99283; J1885; J7512